=== PATIENT | female | born 1995 | race Caucasian/White ===

== ENCOUNTER 2021-03-23 21:07 | Emergency (ER) | payer SELFPAY ==
[~2021-03-23] VITALS: Ht 170.2 cm; Wt 117.9 kg
[2021-03-23 22:05] VITALS: BP_SYST 112
[2021-03-23 22:18] LABS: BILIRUBIN,URINE 1+ (NEGATIVE); BLOOD, URINE NEGATIVE (NEGATIVE); COLOR,URINE YELLOW (YELLOW); GLUCOSE,URINE NEGATIVE (NEGATIVE); KETONES,URINE 3+ (NEGATIVE); LEUKOCYTE ESTERASE ,URINE NEGATIVE (NEGATIVE); NITRITE, URINE NEGATIVE (NEGATIVE); PROTEIN URINE NEGATIVE (NEGATIVE); UROBILINOGEN,URINE 0.2 (0.2-1.0)
[2021-03-23 22:26] LABS: CLARITY/URINE SLIGHTLY HAZY (CLEAR)
[2021-03-23 22:36] LABS: BACTERIA,URINE FEW /HPF (None Seen); RBC,URINE NONE SEEN /HPF (0-3); WBC,URINE NONE SEEN /HPF (0-3)
[2021-03-23 22:39] LABS: MUCUS,URINE 1+ /LPF (None Seen)
[2021-03-24 02:34] VITALS: BP_SYST 112
== END 2021-03-24 02:35 | disposition home or self-care (01) ==
LOC: SED 21:07
DX: O26.891 Other specified pregnancy related conditions, first trimester (principal); R10.9 Unspecified abdominal pain; Z3A.01 Less than 8 weeks gestation of pregnancy
CPT/HCPCS: 36415; 76801; 76817; 81000; 81025; 84702; 99284